=== PATIENT | male | born 1950 | race Caucasian/White ===

== ENCOUNTER 2019-02-16 17:43 | Inpatient (IN) | payer MEDICARE, OTHER ==
[~2019-02-16] VITALS: Ht 180.3 cm; Wt 86.5 kg
--- NOTE | 2019-02-16 18:30 | NUR ---
XR at bedside.
[2019-02-16 18:31] LABS: BASOPHILS # (AUTO) 0.1 X10'3 (0-0.2); EOSINOPHILS # (AUTO) 0.1 X10'3 (0-0.9); HEMATOCRIT 32.8 % (42.0-52.0); HEMOGLOBIN 10.5 g/dl (14.0-17.9); LYMPHOCYTES # (AUTO) 0.8 X10'3 (1.1-4.8); LYMPHOCYTES % (AUTO) 13.3 % (21-51); MEAN CORPUSCULAR HEMOGLOBIN 24.9 PG (27.0-31.0); MEAN CORPUSCULAR VOLUME 77.8 FL (78-98); MEAN PLATELET VOLUME 8.4 FL (7.4-10.4); MONOCYTES # (AUTO) 0.3 X10'3 (0-0.9); MONOCYTES % (AUTO) 5.2 % (2-12); NEUTROPHILS # (AUTO) 4.9 X10'3 (1.8-7.7); NEUTROPHILS % (AUTO) 78.5 % (42-75); PLATELET COUNT 205 X10'3 (140-440); RED BLOOD COUNT 4.22 X10'6 (4.70-6.10); RED CELL DISTRIBUTION WIDTH 19.3 % (11.5-14.5); WHITE BLOOD COUNT 6.3 X10'3 (4.5-11.0)
[2019-02-16 18:43] LABS: PARTIAL THROMBOPLASTIN TIME 24 SECONDS (22-32)
[2019-02-16 18:47] LABS: ALANINE AMINOTRANSFERASE 16 U/L (12-78); ALBUMIN 3.9 G/DL (3.4-5.0); ALBUMIN/GLOBULIN RATIO 0.9 (1.1-1.5); ALKALINE PHOSPHATASE 82 IU/L (46-116); ANION GAP 9 (8-16); ASPARTATE AMINO TRANSFERASE 21 U/L (10-37); BILIRUBIN,TOTAL 0.4 MG/DL (0.1-1.0); BLOOD UREA NITROGEN 7 MG/DL (7-18); BUN/CREATININE RATIO 7.4 (5.4-32.0); CALCIUM 10.3 MG/DL (8.5-10.1); CHLORIDE 100 MMOL/L (99-107); CREATININE 0.95 MG/DL (0.60-1.10); GLUCOSE 89 MG/DL (70-104); POTASSIUM 4.1 MMOL/L (3.5-5.1); SODIUM 137 MMOL/L (135-145); TOTAL CARBON DIOXIDE 27.7 MMOL/L (24-32); TOTAL PROTEIN 8.1 G/DL (6.4-8.2); eGFR 79 ML/MIN
[2019-02-16] MEDS ORDERED: nitroGLYCERIN 0.4mg/hour patch TD ONE (19:30)
[2019-02-16] MEDS ORDERED: iohexol 350MG/ML 100ml bottle IV ONE (19:35)
[2019-02-16] MEDS ORDERED: AMLO2.5T2 PO (19:36)
[2019-02-16] MEDS ORDERED: METO50TA7 PO (19:36)
--- NOTE | 2019-02-16 19:41 | NUR ---
Pt in CT.
[2019-02-16 22:41] LABS: ANISOCYTOSIS 2+; MICROCYTOSIS 1+; PLATELET ESTIMATE NORMAL; POLYCHROMASIA FEW
--- NOTE | 2019-02-16 23:29 | NUR ---
Dr. Madrid at bedside waiting for pt to return from restroom.
[2019-02-16] MEDS ORDERED: metoprolol tartrate 1mg/ml inj IV PRN (23:40)
[2019-02-16] MEDS ORDERED: aminophylline 250mg/10ml inj. IV PRN (23:40)
[2019-02-16] MEDS ORDERED: mag hydrox/Alum hydrox/simeth 30ml oral suspension PO PRN (23:40)
[2019-02-16] MEDS ORDERED: nitroGLYCERIN 0.4mg SUBLingual tab SL PRN (23:40)
[2019-02-16] MEDS ORDERED: magnesium hydroxide 30ml (MOM) UD suspension PO PRN (23:40)
[2019-02-16] MEDS ORDERED: acetaminophen 325mg tablet PO PRN (23:40)
[2019-02-16] MEDS ORDERED: ondansetron/PF 4mg/2ml inj IV PRN (23:40)
[2019-02-16] MEDS ORDERED: regadenoson 0.4mg/5ml syringe IV ONE (23:40)
[2019-02-17] VITALS (13 sets, daily range): BP systolic 117–153; BP diastolic 48–93
[2019-02-17 00:06] LABS: % IRON SATURATION 7 % (11-46); IRON 32 UG/DL (53-167); TOTAL IRON BINDING CAPACITY 441 UG/DL (259-388)
[2019-02-17] MEDS ORDERED: regadenoson 0.4mg/5ml syringe IV PRN (00:10)
--- NOTE | 2019-02-17 01:43 | NUR ---
0100: Patient in room [facility]. I have received report from JOSE Pineda RN and had the opportunity to ask questions and assume patient care.Patient arrived to unit in no apparent distress by wheelchair. Nurse transported. Addendum: 02/17/19 at 0145 by Yang Presley RN Pateint is not complainig of any chest pain at this time. Will continue to monitor
--- NOTE | 2019-02-17 02:18 | NUR ---
patient is admitted because of chest pain. Tatyana scan planned for later today. Patient does not complain of any chest pain at this time. Addendum: 02/17/19 at 0224 by Yang Presley RN Amended: Links added.
--- NOTE | 2019-02-17 06:34 | NUR ---
Problems reprioritized. Patient report given, questions answered & plan of care reviewed with EVA King.
--- NOTE | 2019-02-17 06:35 | NUR ---
Patient in room [facility]. I have received report from Yang and had the opportunity to ask questions and assume patient care.
--- NOTE | 2019-02-17 06:55 | NUR ---
Patient in room [facility]. I have received report from EVA Soria and had the opportunity to ask questions and assume patient care.
--- NOTE | 2019-02-17 07:50 | NUR ---
Pt was NPO since midnight of 02/17. Pt was not aware and there was no sign of NPO in his room. pt was not aware of his NPO status. He was scheduled to get a erin-scan. I notified Nuc-med about him taking a couple bites of eggs and macedonian toast and 200 ml of milk. I placed an NPO sign in the room and educated the patient about his status
[2019-02-17 07:54] LABS: BASOPHILS % (AUTO) 0.7 % (0-1); EOSINOPHILS # (AUTO) 0.1 X10'3 (0-0.9); EOSINOPHILS % (AUTO) 1.5 % (0-6); HEMATOCRIT 29.7 % (42.0-52.0); HEMOGLOBIN 9.5 g/dl (14.0-17.9); LYMPHOCYTES # (AUTO) 0.7 X10'3 (1.1-4.8); LYMPHOCYTES % (AUTO) 11.1 % (21-51); MEAN CORPUSCULAR HEMOGLOBIN 24.8 PG (27.0-31.0); MEAN CORPUSCULAR HGB CONC 31.9 g/dL (33.0-36.5); MEAN CORPUSCULAR VOLUME 77.6 FL (78-98); MEAN PLATELET VOLUME 8.7 FL (7.4-10.4); MONOCYTES # (AUTO) 0.4 X10'3 (0-0.9); MONOCYTES % (AUTO) 6.2 % (2-12); NEUTROPHILS # (AUTO) 5.3 X10'3 (1.8-7.7); NEUTROPHILS % (AUTO) 80.5 % (42-75); PLATELET COUNT 161 X10'3 (140-440); RED BLOOD COUNT 3.83 X10'6 (4.70-6.10); RED CELL DISTRIBUTION WIDTH 19.1 % (11.5-14.5); WHITE BLOOD COUNT 6.6 X10'3 (4.5-11.0)
[2019-02-17] MEDS: amLODIPine 5mg tablet PO SCH (08:00)
[2019-02-17] MEDS: metoprolol succinate 25mg (24-HOUR) SR. Tablet PO SCH (08:00)
[2019-02-17] MEDS: loperamide 2mg capsule PO PRN ×2 (08:05→18:52)
[2019-02-17 08:12] LABS: ALBUMIN 3.3 G/DL (3.4-5.0); ANION GAP 11 (8-16); BLOOD UREA NITROGEN 12 MG/DL (7-18); BUN/CREATININE RATIO 13.6 (5.4-32.0); CALCIUM 10.2 MG/DL (8.5-10.1); CHLORIDE 101 MMOL/L (99-107); CHOL/HDL RATIO 4.7 (0.00-4.99); CHOLESTEROL 165 MG/DL (0-200); CREATININE 0.88 MG/DL (0.60-1.10); GLUCOSE 90 MG/DL (70-104); HDL CHOLESTEROL 35 MG/DL (35-60); LDL CHOLESTEROL 120 MG/DL (50-100); POTASSIUM 4.3 MMOL/L (3.5-5.1); SODIUM 135 MMOL/L (135-145); TOTAL CARBON DIOXIDE 23.3 MMOL/L (24-32); TRIGLYCERIDES 139 MG/DL (20-135); eGFR 86 ML/MIN
[2019-02-17 08:31] LABS: LARGE PLATELETS FEW; PLATELET ESTIMATE NORMAL
[2019-02-17 08:32] LABS: ANISOCYTOSIS 2+; MICROCYTOSIS 1+
[2019-02-17] MEDS: pantoprazole 40MG/NS 100ML BAG 100 ML IV SCH ×2 (11:00→11:32)
[2019-02-17 11:47] LABS: HEMATOCRIT 29.4 % (42.0-52.0); HEMOGLOBIN 9.3 g/dl (14.0-17.9); MEAN CORPUSCULAR HEMOGLOBIN 24.7 PG (27.0-31.0); MEAN CORPUSCULAR HGB CONC 31.6 g/dL (33.0-36.5); MEAN CORPUSCULAR VOLUME 78.1 FL (78-98); MEAN PLATELET VOLUME 8.8 FL (7.4-10.4); PLATELET COUNT 164 X10'3 (140-440); RED BLOOD COUNT 3.77 X10'6 (4.70-6.10); RED CELL DISTRIBUTION WIDTH 18.9 % (11.5-14.5)
--- NOTE | 2019-02-17 12:35 | NUR ---
pt went down to GI lab. Informed Tele about pat going to GI lab. patient was aler and oriented. he was not in distress when he left.
[2019-02-17] MEDS ORDERED: MIDAZolam 5mg/5ml vial ONE (12:44)
[2019-02-17] MEDS ORDERED: fentaNYL/PF 50MCG/1 ML 2ML syringe ONE (12:44)
[2019-02-17] MEDS ORDERED: LIDOcaine Viscous 15ml cup ONE (12:44)
--- NOTE | 2019-02-17 14:00 | NUR ---
Malnutrition consult: Pt seen at bedside reports UBW 193 lbs with wt loss to 173 lbs that occurred over the last 1.5-2 years ago r/t decreased appetite with decreased activity secondary to back injury and difficulty eating d/t needing to get dentures fixed. This is non-significant wt loss of 10% in 1.5-2 years. Pt agrees to soft to chew food to optimize PO intake, d/w dietary. Pt states his usual meal pattern is just one meal a day however states that he drinks Ensure or Boost daily d/t to decreased PO intake of meals. No documentation of PO intake since admit. Pt with mild decrease in muscle strength, no edema, and no visible fat/muscle wasting. Pt currently does not meet criteria for malnutrition. Nutrition consult re: " cardiac hx, states he does not eat healthy". Pt provided with written and verbal heart healthy nutrition therapy education as well as ONS recommendations for when experiencing a low appetite with ONS coupons and RD contact information. Will remain available. Addendum: 02/17/19 at [address] Amended: Links added.
--- NOTE | 2019-02-17 15:11 | NUR ---
patient back to room 360b. alert and oriented with no complaints other than "starving." Visitor at bedside.
[2019-02-17 15:57] LABS: HEMATOCRIT 30.2 % (42.0-52.0); HEMOGLOBIN 9.5 g/dl (14.0-17.9); MEAN CORPUSCULAR HEMOGLOBIN 24.7 PG (27.0-31.0); MEAN CORPUSCULAR HGB CONC 31.4 g/dL (33.0-36.5); MEAN CORPUSCULAR VOLUME 78.4 FL (78-98); MEAN PLATELET VOLUME 8.6 FL (7.4-10.4); PLATELET COUNT 176 X10'3 (140-440); RED BLOOD COUNT 3.86 X10'6 (4.70-6.10); RED CELL DISTRIBUTION WIDTH 19.3 % (11.5-14.5); WHITE BLOOD COUNT 6.1 X10'3 (4.5-11.0)
--- NOTE | 2019-02-17 18:35 | NUR ---
Problems reprioritized. Patient report given, questions answered & plan of care reviewed with
--- NOTE | 2019-02-17 18:40 | NUR ---
Student documentation: I have reviewed and agree with all interventions, assessments performed and documented by SN KM. Student Medication Administration: For this medication-pass time frame, all medication were reviewed, dispensed, administered and documented per hospital policy by SN KM.
[2019-02-17] MEDS: acetaminophen 325mg tablet PO PRN (18:53)
[2019-02-17] MEDS: pantoprazole 40mg Tablet.DR PO SCH (19:25)
[2019-02-18] VITALS: BP 119/40
[2019-02-18 04:23] LABS: BASOPHILS # (AUTO) 0.1 X10'3 (0-0.2); BASOPHILS % (AUTO) 1.3 % (0-1); EOSINOPHILS # (AUTO) 0.2 X10'3 (0-0.9); EOSINOPHILS % (AUTO) 3.4 % (0-6); HEMOGLOBIN 8.8 g/dl (14.0-17.9); LYMPHOCYTES % (AUTO) 20.1 % (21-51); MEAN CORPUSCULAR HEMOGLOBIN 24.9 PG (27.0-31.0); MEAN CORPUSCULAR HGB CONC 31.6 g/dL (33.0-36.5); MEAN CORPUSCULAR VOLUME 78.9 FL (78-98); MONOCYTES # (AUTO) 0.3 X10'3 (0-0.9); MONOCYTES % (AUTO) 5.8 % (2-12); NEUTROPHILS # (AUTO) 3.4 X10'3 (1.8-7.7); NEUTROPHILS % (AUTO) 69.4 % (42-75); PLATELET COUNT 154 X10'3 (140-440); RED BLOOD COUNT 3.54 X10'6 (4.70-6.10); RED CELL DISTRIBUTION WIDTH 19.3 % (11.5-14.5); WHITE BLOOD COUNT 4.8 X10'3 (4.5-11.0)
[2019-02-18 04:33] LABS: ALBUMIN 3.1 G/DL (3.4-5.0); ANION GAP 9 (8-16); BLOOD UREA NITROGEN 15 MG/DL (7-18); BUN/CREATININE RATIO 16.5 (5.4-32.0); CALCIUM 9.3 MG/DL (8.5-10.1); CHLORIDE 105 MMOL/L (99-107); CREATININE 0.91 MG/DL (0.60-1.10); GLUCOSE 89 MG/DL (70-104); SODIUM 140 MMOL/L (135-145); TOTAL CARBON DIOXIDE 26.1 MMOL/L (24-32); eGFR 83 ML/MIN
[2019-02-18 07:58] VITALS: BP 102/62
[2019-02-18 08:06] LABS: PLATELET ESTIMATE NORMAL
[2019-02-18 08:07] LABS: ANISOCYTOSIS 2+; HYPOCHROMASIA 1+; MICROCYTOSIS 1+
[2019-02-18] MEDS: amLODIPine 5mg tablet PO SCH (08:09)
[2019-02-18] MEDS: metoprolol succinate 25mg (24-HOUR) SR. Tablet PO SCH (08:09)
[2019-02-18] MEDS: pantoprazole 40mg Tablet.DR PO SCH (08:09)
[2019-02-18] MEDS: acetaminophen 325mg tablet PO PRN (08:10)
--- NOTE | 2019-02-18 08:49 | NUR ---
Student Medication Administration: For this medication-pass time frame, all medication were reviewed, dispensed, administered and documented per hospital policy by Lexis Erwin [facility].
[2019-02-18] MEDS ORDERED: PANT40TA4 PO (09:03)
--- NOTE | 2019-02-18 10:30 | NUR ---
Patient A&O and in no apparent distress. Spouse at bedside. Discussed with patient discharge instructions and new prescriptions. patient and spouse verbalized understanding of teaching. Patient IV dc'd. He has all his personal belongings ready for dc.
--- NOTE | 2019-02-18 10:55 | NUR ---
Patient dc'd with all personal belongings via wheelchair accompanied by x1 spouse. Patient was a&o and in no distress with no complaints.
== END 2019-02-18 10:55 | disposition home or self-care (01) | DRG 392 ==
LOC: ER 17:43 → ED HOLD 23:51 → SUR 3N 02-17 01:31
PROVIDERS: ADMIT Hospitalist; ATTEND Internal Medicine
PROC: B32T1ZZ Computerized Tomography (CT Scan) of Left Pulmonary Artery using Low Osmolar Contrast (ICD-10-PCS; principal; 2019-02-16)
PROC: B3201ZZ Computerized Tomography (CT Scan) of Thoracic Aorta using Low Osmolar Contrast (ICD-10-PCS; 2019-02-16)
PROC: B32S1ZZ Computerized Tomography (CT Scan) of Right Pulmonary Artery using Low Osmolar Contrast (ICD-10-PCS; 2019-02-16)
PROC: 0DB68ZX Excision of Stomach, Via Natural or Artificial Opening Endoscopic, Diagnostic (ICD-10-PCS; 2019-02-17)
DX: K21.0 Gastro-esophageal reflux disease with esophagitis (principal); D62 Acute posthemorrhagic anemia; F17.200 Nicotine dependence, unspecified, uncomplicated; I10 Essential (primary) hypertension; I25.10 Atherosclerotic heart disease of native coronary artery without angina pectoris; J44.9 Chronic obstructive pulmonary disease, unspecified; K22.70 Barrett's esophagus without dysplasia; I71.2 Thoracic aortic aneurysm, without rupture; K29.70 Gastritis, unspecified, without bleeding; K44.9 Diaphragmatic hernia without obstruction or gangrene; Z79.899 Other long term (current) drug therapy; I25.2 Old myocardial infarction; Z95.5 Presence of coronary angioplasty implant and graft; Z56.0 Unemployment, unspecified
CPT/HCPCS: 36415; 43239; 71045; 71275; 74174; 80048; 80053; 80061; 83540; 83550; 84484; 85025; 85027; 85610; 85730; 87081; 88305; 88342; 93005; 99152; 99285; A4620; C9113; G0378; J0280; J2250; J2785; J3010; J7040; Q9967

== ENCOUNTER 2023-03-08 09:55 | Inpatient (IN) | payer MEDICARE, OTHER ==
[~2023-03-08] VITALS: Ht 180.3 cm; Wt 77.3 kg
[2023-03-08] VITALS (9 sets, daily range): BP systolic 98–108; BP diastolic 58–89; PULSE 54–92; RESP 18–29; TEMP 97.1–98.3; O2SAT 95–98
[~2023-03-08 09:55] MED LIST: ATOR40TA71 PO; LIDOcaine 2% (20 mg/ml) 5ml cardiac syringe ONE; LIDOcaine 2% jelly 6ml syringe ***for topical use only ONE; METO-395 PO; rocuronium 10mg/ml inj IV ONE; sod chloride 0.9% 10ml flush syringe IV ONE
--- NOTE | 2023-03-08 11:35 | NUR ---
Sharmaine joaquin in [facility] - 03/08/23 at 1138 by MARIA GUADALUPE PT NIL
--- NOTE | 2023-03-08 11:38 | NUR ---
PT IN [facility]
[2023-03-08] MEDS ORDERED: azithromycin/NS 500mg/250ml 250 ML IV ONE (14:40)
[2023-03-08] MEDS ORDERED: ipratropium 0.5 MG/2.5ML nebule IH ONE ×2 (14:40)
[2023-03-08] MEDS ORDERED: normal saline 1000ML IV soln IVB ONE (14:40)
[2023-03-08] MEDS ORDERED: CefTRIAXone 2gm/D5W 50ml BAG 50 ML IV ONE (14:40)
[2023-03-08] MEDS ORDERED: methylPREDNISolone sod succ 125mg/2ml vial IV ONE (14:40)
[2023-03-08] MEDS ORDERED: albuterol 2.5 MG/3 ML nebule CONTNEB PRN ×2 (14:40)
[2023-03-08 14:53] LABS: ABG BASE EXCESS -5.2 mmol/L (-2.0-2.0); ABG HCO3 17.5 mmol/L (22.0-26.0); ABG OXYGEN SATURATION 95.6 % (94-97); ABG PCO2 (T) 24.1 mmHg (35.0-48.0); ABG PO2 (T) 78.6 mmHg (75.0-100.0); ALLEN'S TEST Modified; FCOHb 1.2 % (0.0-3.9); FHHb 4.3 % (0.0-5.0); FLOW 3 L/min; FMetHb 0.4 % (0.0-1.5); FO2Hb 94.1 % (94-97); MODE NC; TOTAL HEMOGLOBIN 7.5 G/dl (14.0-17.9)
[2023-03-08 15:19] LABS: BASOPHILS % (AUTO) 0.3 % (0-1); EOSINOPHILS % (AUTO) 0 % (0-6); MEAN CORPUSCULAR HEMOGLOBIN 19.7 PG (27.0-31.0); MEAN CORPUSCULAR HGB CONC 27.8 g/dL (33.0-36.5); MONOCYTES # (AUTO) 0.6 X10'3 (0-0.9)
[2023-03-08 15:20] LABS: LYMPHOCYTES # (AUTO) 0.4 X10'3 (1.1-4.8); LYMPHOCYTES % (AUTO) 5.5 % (21-51); MEAN PLATELET VOLUME 9.7 FL (7.4-10.4); MONOCYTES % (AUTO) 8.6 % (2-12); NEUTROPHILS # (AUTO) 6.1 X10'3 (1.8-7.7); NEUTROPHILS % (AUTO) 85.6 % (42-75); PLATELET COUNT 94 X10'3 (140-440); RED BLOOD COUNT 3.38 X10'6 (4.70-6.10); RED CELL DISTRIBUTION WIDTH 22.3 % (11.5-14.5); WHITE BLOOD COUNT 7.1 X10'3 (4.5-11.0)
[2023-03-08 15:30] LABS: ALANINE AMINOTRANSFERASE 14 U/L (12-78); ALBUMIN 3.6 G/DL (3.4-5.0); ALBUMIN/GLOBULIN RATIO 1.1 (1.1-1.5); ALKALINE PHOSPHATASE 85 IU/L (46-116); ANION GAP 13 (8-16); ASPARTATE AMINO TRANSFERASE 21 U/L (10-37); BILIRUBIN,TOTAL 1.2 MG/DL (0.1-1.0); BLOOD UREA NITROGEN 12 MG/DL (7-18); BUN/CREATININE RATIO 9.8 (10.0-20.0); CALCIUM 10.5 MG/DL (8.5-10.1); CHLORIDE 95 MMOL/L (99-107); CREATININE 1.22 MG/DL (0.60-1.10); GLUCOSE 110 MG/DL (70-104); POTASSIUM 4.4 MMOL/L (3.5-5.1); SODIUM 129 MMOL/L (135-145); TOTAL CARBON DIOXIDE 20.6 MMOL/L (24-32); eCRCL 58 ML/MIN; eGFR 58 ML/MIN
[2023-03-08 15:39] LABS: ETHANOL < 10 MG/DL (<10); PRO BRAIN NATRIURETIC PEPTIDE 9494 PG/ML (0-125)
[2023-03-08 15:44] LABS: HEMOGLOBIN 6.7 g/dl (14.0-17.9)
[2023-03-08 15:49] LABS: PLATELET ESTIMATE DECREASED
[2023-03-08 15:50] LABS: ANISOCYTOSIS 3+; ELLIPTOCYTES 1+; HYPOCHROMASIA 2+; MICROCYTOSIS 1+; STOMATOCYTES 1+; TEAR DROP CELLS FEW
[2023-03-08] MEDS ORDERED: nitroGLYCERIN 1gm ointment UD TP ONE (15:50)
[2023-03-08] MEDS ORDERED: aspirin 325mg tablet PO ONE (15:50)
[2023-03-08 15:52] LABS: SCHISTOCYTES FEW
[2023-03-08] MEDS ORDERED: iohexol 350MG/ML 100ml bottle IV ONE (15:52)
[2023-03-08] MEDS ORDERED: pantoprazole 40 MG vial IV ONE (16:25)
[2023-03-08] MEDS ORDERED: normal saline 1000ml 1,000 ML IV ONE (16:25)
[2023-03-08] MEDS: NORepinephrine 8mg/ 250ml NS 250 ML IV PRN ×2 (17:03→23:54)
[2023-03-08] MEDS ORDERED: succinylcholine 20mg/ml inj IV ONE (17:11)
[2023-03-08] MEDS ORDERED: ondansetron/PF 4mg/2ml inj IV ONE (17:20)
[2023-03-08] MEDS ORDERED: morphine 2 MG/ML inj. syringe IV ONE (17:25)
[2023-03-08] MEDS: pantoprazole 40MG/NS 100ML BAG 100 ML IV SCH (21:18)
[2023-03-08] MEDS ORDERED: magnesium hydroxide 30ml (MOM) UD suspension PO PRN (21:35)
[2023-03-08] MEDS ORDERED: ondansetron/PF 4mg/2ml inj IV PRN (21:35)
[2023-03-08] MEDS ORDERED: albuterol 2.5 MG/3 ML nebule NEB PRN (21:35)
[2023-03-08] MEDS ORDERED: acetaminophen 325mg tablet PO PRN (21:35)
--- NOTE | 2023-03-08 21:51 | NUR ---
Message sent to RT. Pt in ER 4 Fadi Murphy. Came off bi PAP to talk to the chief embalmer. He remains on 6L NC with an O2 SAT OF 96. Pt is not in distress.
[2023-03-08 22:24] LABS: THYROID STIMULATING HORMONE 3.53 ulU/ml (0.34-4.50)
[2023-03-09] VITALS (19 sets, daily range): BP systolic 96–143; BP diastolic 40–99; PULSE 50–60; RESP 15–30; O2SAT 89–98
[2023-03-09] MEDS: pantoprazole 40MG/NS 100ML BAG 100 ML IV SCH (01:56)
[2023-03-09] MEDS: albuterol 2.5 MG/3 ML nebule NEB SCH ×4 (02:02→20:13)
[2023-03-09] MEDS: NORepinephrine 8mg/ 250ml NS 250 ML IV PRN ×3 (04:47→11:54)
[2023-03-09 05:35] LABS: EOSINOPHILS % (AUTO) 0 % (0-6); HEMOGLOBIN 7.6 g/dl (14.0-17.9); LYMPHOCYTES # (AUTO) 0.5 X10'3 (1.1-4.8)
[2023-03-09 05:38] LABS: BASOPHILS % (AUTO) 0 % (0-1); HEMATOCRIT 26.5 % (42.0-52.0); LYMPHOCYTES % (AUTO) 6.1 % (21-51); MEAN CORPUSCULAR HEMOGLOBIN 20.7 PG (27.0-31.0); MEAN CORPUSCULAR HGB CONC 28.7 g/dL (33.0-36.5); MEAN CORPUSCULAR VOLUME 72.3 FL (78-98); MEAN PLATELET VOLUME 9.1 FL (7.4-10.4); MONOCYTES # (AUTO) 0.5 X10'3 (0-0.9); MONOCYTES % (AUTO) 5.6 % (2-12); NEUTROPHILS # (AUTO) 7.5 X10'3 (1.8-7.7); NEUTROPHILS % (AUTO) 88.3 % (42-75); PLATELET COUNT 119 X10'3 (140-440); RED BLOOD COUNT 3.66 X10'6 (4.70-6.10); RED CELL DISTRIBUTION WIDTH 21.9 % (11.5-14.5); WHITE BLOOD COUNT 8.5 X10'3 (4.5-11.0)
[2023-03-09 05:44] LABS: ALBUMIN 3.3 G/DL (3.4-5.0); ANION GAP 12 (8-16); BLOOD UREA NITROGEN 18 MG/DL (7-18); BUN/CREATININE RATIO 13.7 (10.0-20.0); CALCIUM 9.6 MG/DL (8.5-10.1); CHLORIDE 99 MMOL/L (99-107); CREATININE 1.31 MG/DL (0.60-1.10); GLUCOSE 181 MG/DL (70-104); MAGNESIUM 1.6 MG/DL (1.5-2.4); POTASSIUM 3.8 MMOL/L (3.5-5.1); SODIUM 131 MMOL/L (135-145); TOTAL CARBON DIOXIDE 19.9 MMOL/L (24-32); eCRCL 54 ML/MIN; eGFR 54 ML/MIN
[2023-03-09 06:40] LABS: ANISOCYTOSIS 3+; HYPOCHROMASIA 1+; MICROCYTOSIS 1+; NUCLEATED RED BLOOD CELLS 2 /100WBC (0-0); PLATELET ESTIMATE DECREASED; POLYCHROMASIA 2+; TEAR DROP CELLS FEW; TOTAL CELLS COUNTED 100
[2023-03-09 06:41] LABS: ELLIPTOCYTES 1+; LARGE PLATELETS FEW; SCHISTOCYTES FEW
--- NOTE | 2023-03-09 07:52 | NUR ---
updated pt's sister leeroy, on the pt's status
[2023-03-09] MEDS ORDERED: enoxaparin 30mg/0.3ml syringe SUBCUT ONE (08:00)
[2023-03-09] MEDS ORDERED: ipratropium 0.5 MG/2.5ML nebule IH ONE (08:00)
[2023-03-09] MEDS: pantoprazole 40 MG vial IV SCH ×2 (08:16→20:37)
[2023-03-09] MEDS: predniSONE 20 mg tablet PO SCH (08:16)
[2023-03-09] MEDS: CefTRIAXone/D5W-Rocephin 1gm 50 ML IV SCH (08:18)
[2023-03-09 09:44] LABS: URINE AMPHETAMINE SCREEN NEGATIVE (Neg); URINE BARBITUATE SCREEN NEGATIVE (Neg); URINE BENZODIAZEPINES SCREEN NEGATIVE (Neg); URINE CANNABINOID SCREEN NEGATIVE (Neg); URINE COCAINE SCREEN NEGATIVE (Neg); URINE METHADONE SCREEN NEGATIVE (Neg); URINE OPIATE SCREEN POSITIVE (Neg); URINE PHENCYCLIDINE SCREEN NEGATIVE (Neg)
--- NOTE | 2023-03-09 10:40 | NUR ---
NERYROBIN YBARRA DAUGHTER [phone]
--- NOTE | 2023-03-09 11:06 | NUR ---
attempted to return a call to trice mehta but got no answer.
--- NOTE | 2023-03-09 12:38 | NUR ---
tried to give report but was advised that the primary receiving nurse is not ready and needs 15 minutes and will call for report.
[2023-03-09] MEDS ORDERED: ringers solution, lacted 1,000 ML IV ONE ×3 (13:35→16:45)
--- NOTE | 2023-03-09 13:40 | NUR ---
dr stubbs gave verbal order to infuse 2,000 mL of LR stat and titrate the levophed down, he expects a f/u call after these orders are carried out.
--- NOTE | 2023-03-09 15:00 | NUR ---
pt here- walked from [facility]- tolerated well, slight sob with exertion, renains on levo and lr. update to daughter coming from [place]
--- NOTE | 2023-03-09 16:00 | NUR ---
labs drawn, hemogram down, increased levo required. questionable vascular problems on left arm- switched bp to right- improved bp. 1 liter lr given when dr stubbs called.
[2023-03-09 16:33] LABS: HEMATOCRIT 24.7 % (42.0-52.0); MEAN CORPUSCULAR HEMOGLOBIN 20.8 PG (27.0-31.0); MEAN CORPUSCULAR HGB CONC 28.3 g/dL (33.0-36.5); MEAN CORPUSCULAR VOLUME 73.5 FL (78-98); PLATELET COUNT 120 X10'3 (140-440); RED BLOOD COUNT 3.36 X10'6 (4.70-6.10); RED CELL DISTRIBUTION WIDTH 21.7 % (11.5-14.5); WHITE BLOOD COUNT 15.4 X10'3 (4.5-11.0)
[2023-03-09] MEDS: ringers solution, lactated 500ml IV solution IV SCH (18:00)
--- NOTE | 2023-03-09 18:00 | NUR ---
levo off, dr stubbs called re pts orientation slightly off-last drink on sat- ium ordered.
[2023-03-09] MEDS ORDERED: chlordiazePOXIDE 25mg capsule PO ONE (18:25)
--- NOTE | 2023-03-09 18:41 | NUR ---
Patient in room ICU 2045. I have received report from Daria Galvan RN and had the opportunity to ask questions and assume patient care.
[2023-03-09] MEDS ORDERED: enoxaparin 40mg/0.4ml syringe SQ SCH (20:00)
--- NOTE | 2023-03-09 23:30 | NUR ---
MD Han rounding on patient via tele. MD updated on patient status, including patients stable BP off levo and patient desaturating when asleep. Order received to place patient on CPAP for sleep. Will follow MD orders, will continue to monitor patient.
--- NOTE | 2023-03-09 23:57 | NUR ---
RT at patient bedside setting up hospital CPAP. Patient stating he normally uses one at home, which was not states in patient history. Will update .
[2023-03-10] VITALS (38 sets, daily range): BP systolic 104–150; BP diastolic 40–108; PULSE 45–102; RESP 11–26; TEMP 98.4; O2SAT 91–100
[2023-03-10] MEDS: ringers solution, lactated 500ml IV solution IV SCH ×4 (00:01→20:28)
[2023-03-10 00:39] LABS: ALBUMIN 2.7 G/DL (3.4-5.0); ANION GAP 9 (8-16); BLOOD UREA NITROGEN 25 MG/DL (7-18); BUN/CREATININE RATIO 21.9 (10.0-20.0); CHLORIDE 99 MMOL/L (99-107); CREATININE 1.14 MG/DL (0.60-1.10); GLUCOSE 123 MG/DL (70-104); MAGNESIUM 1.5 MG/DL (1.5-2.4); POTASSIUM 4.1 MMOL/L (3.5-5.1); SODIUM 131 MMOL/L (135-145); TOTAL CARBON DIOXIDE 22.8 MMOL/L (24-32); eCRCL 62 ML/MIN; eGFR 63 ML/MIN
--- NOTE | 2023-03-10 01:54 | NUR ---
MD Han called and notified regarding patient's critical Hemoglobin 6.3 and Hematocrit 21.4. New order for 1 unit PRBC received and to be placed by MD. Will follow MD orders, will continue to monitor patient.
[2023-03-10] MEDS: albuterol 2.5 MG/3 ML nebule NEB SCH ×4 (02:14→20:45)
[2023-03-10 02:52] LABS: BASOPHILS % (AUTO) 0.1 % (0-1); EOSINOPHILS % (AUTO) 0 % (0-6); LYMPHOCYTES # (AUTO) 0.6 X10'3 (1.1-4.8); MONOCYTES # (AUTO) 0.4 X10'3 (0-0.9)
[2023-03-10 02:53] LABS: LYMPHOCYTES % (AUTO) 6.9 % (21-51); MEAN CORPUSCULAR HEMOGLOBIN 21.3 PG (27.0-31.0); MEAN CORPUSCULAR HGB CONC 29.2 g/dL (33.0-36.5); MEAN CORPUSCULAR VOLUME 73.1 FL (78-98); MEAN PLATELET VOLUME 9.7 FL (7.4-10.4); MONOCYTES % (AUTO) 4.5 % (2-12); NEUTROPHILS # (AUTO) 7.1 X10'3 (1.8-7.7); NEUTROPHILS % (AUTO) 88.5 % (42-75); PLATELET COUNT 92 X10'3 (140-440); RED BLOOD COUNT 2.99 X10'6 (4.70-6.10); RED CELL DISTRIBUTION WIDTH 21.8 % (11.5-14.5); WHITE BLOOD COUNT 8.1 X10'3 (4.5-11.0)
[2023-03-10 03:38] LABS: HEMATOCRIT 21.8 % (42.0-52.0); HEMOGLOBIN 6.4 g/dl (14.0-17.9)
[2023-03-10 03:42] LABS: LARGE PLATELETS FEW; PLATELET ESTIMATE DECREASED
[2023-03-10 03:43] LABS: ANISOCYTOSIS 3+; HYPOCHROMASIA 2+; MICROCYTOSIS 1+
[2023-03-10 03:44] LABS: ELLIPTOCYTES 1+
[2023-03-10] MEDS: chlordiazePOXIDE 25mg capsule PO SCH ×4 (05:50→14:00)
--- NOTE | 2023-03-10 06:26 | NUR ---
Problems reprioritized. Patient report given, questions answered & plan of care reviewed with Emily VELASQUEZ.
[2023-03-10] MEDS ORDERED: MVI, adult No.4 with vit. K 10 ML in dextrose 5% water 500ml 500 ML IV SCH ×2 (07:30)
[2023-03-10] MEDS ORDERED: folic acid 1mg tablet PO ONE (08:00)
--- NOTE | 2023-03-10 08:07 | NUR ---
Patient in room ICU 2045. I have received report from Juan Ramon VELASQUEZ and had the opportunity to ask questions and assume patient care.
[2023-03-10 08:09] LABS: HEMATOCRIT 25.9 % (42.0-52.0); HEMOGLOBIN 7.9 g/dl (14.0-17.9); MEAN CORPUSCULAR HEMOGLOBIN 22.9 PG (27.0-31.0); MEAN CORPUSCULAR HGB CONC 30.3 g/dL (33.0-36.5); MEAN CORPUSCULAR VOLUME 75.5 FL (78-98); PLATELET COUNT 88 X10'3 (140-440); RED BLOOD COUNT 3.43 X10'6 (4.70-6.10); RED CELL DISTRIBUTION WIDTH 23.7 % (11.5-14.5); WHITE BLOOD COUNT 8.7 X10'3 (4.5-11.0)
[2023-03-10] MEDS: pantoprazole 40 MG vial IV SCH ×2 (08:50→20:26)
[2023-03-10] MEDS: MULTIVIT-MIN/FERROUS GLUCONATE 9 MG/15 ML LIQUID PO SCH (08:50)
[2023-03-10] MEDS: thiamine 100mg tablet PO SCH (08:50)
[2023-03-10] MEDS: CefTRIAXone/D5W-Rocephin 1gm 50 ML IV SCH (08:58)
[2023-03-10] MEDS: azithromycin/NS 500mg/250ml 250 ML IV SCH (10:09)
[2023-03-10] MEDS: nicotine 21mg patch - 24 hr TD SCH (10:59)
--- NOTE | 2023-03-10 11:10 | NUR ---
Initial: Pt DX septic shock, acute exacerbation COPD, and acute on chronic hypoxemic respiratory failure per EMR. Pt is currently on a full liquid diet with documented intake of 25-100% for first two meals though not meeting estimated needs due to restrictive diet. LBM on 03/09 per EMR. Will continue to monitor closely and make recommendations as appropriate. Recommendations: 1.continue full liquid diet and advance diet as medically indicated 2.monitor PO intake and need for ONS 3.continue MVM with iron, folic acid, thiamine due to anemia and ETOH hx 4.bowel care per physician 5.weekly scaled wts Addendum: 03/10/23 at [address] Amended: Links added.
[2023-03-10] MEDS: predniSONE 20 mg tablet PO SCH (11:43)
--- NOTE | 2023-03-10 18:15 | NUR ---
Patient in room ICU 2045. I have received report from mEily VELASQUEZ and had the opportunity to ask questions and assume patient care.
[2023-03-10] MEDS ORDERED: LORazepam 1 MG tablet PO PRN (19:45)
[2023-03-10] MEDS ORDERED: haloperidol lactate 5mg/ml inj IM PRN (19:45)
[2023-03-10] MEDS ORDERED: haloperidol 5mg tablet PO PRN (19:45)
[2023-03-10] MEDS ORDERED: LORazepam 2 mg/ml vial IV PRN (19:45)
--- NOTE | 2023-03-10 19:59 | NUR ---
MD Morrison called to notify regarding patient's current order for scheduled lovenox even though last plt level was 88. Also called to inform MD of patient's ETOH history and to ask for ETOH protocol med order for patient. New orders received. Will continue to monitor patient, will follow MD orders.
[2023-03-11] VITALS (17 sets, daily range): BP systolic 122–151; BP diastolic 46–72; PULSE 72–94; RESP 12–25; TEMP 98–98.7; O2SAT 90–99
[2023-03-11 01:04] LABS: BASOPHILS # (AUTO) 0.1 X10'3 (0-0.2); EOSINOPHILS % (AUTO) 0.3 % (0-6); HEMATOCRIT 25.4 % (42.0-52.0); HEMOGLOBIN 7.7 g/dl (14.0-17.9); LYMPHOCYTES # (AUTO) 0.2 X10'3 (1.1-4.8); LYMPHOCYTES % (AUTO) 2.7 % (21-51); MEAN CORPUSCULAR HGB CONC 30.4 g/dL (33.0-36.5); MEAN CORPUSCULAR VOLUME 75.8 FL (78-98); MONOCYTES # (AUTO) 0.2 X10'3 (0-0.9); MONOCYTES % (AUTO) 3.4 % (2-12); NEUTROPHILS # (AUTO) 6.7 X10'3 (1.8-7.7); NEUTROPHILS % (AUTO) 92.6 % (42-75); PLATELET COUNT 94 X10'3 (140-440); RED BLOOD COUNT 3.36 X10'6 (4.70-6.10); RED CELL DISTRIBUTION WIDTH 23.6 % (11.5-14.5); WHITE BLOOD COUNT 7.2 X10'3 (4.5-11.0)
[2023-03-11 01:12] LABS: ALBUMIN 2.7 G/DL (3.4-5.0); ANION GAP 7 (8-16); BLOOD UREA NITROGEN 16 MG/DL (7-18); CHLORIDE 101 MMOL/L (99-107); GLUCOSE 139 MG/DL (70-104); MAGNESIUM 1.5 MG/DL (1.5-2.4); POTASSIUM 4.3 MMOL/L (3.5-5.1); SODIUM 134 MMOL/L (135-145); TOTAL CARBON DIOXIDE 26.3 MMOL/L (24-32); eCRCL 71 ML/MIN; eGFR 73 ML/MIN
[2023-03-11 02:02] LABS: PLATELET ESTIMATE DECREASED
[2023-03-11 02:03] LABS: ANISOCYTOSIS 3+; LARGE PLATELETS FEW; MICROCYTOSIS 1+
[2023-03-11 02:04] LABS: ELLIPTOCYTES 1+; TARGET CELLS FEW
[2023-03-11 02:05] LABS: HYPOCHROMASIA 1+
[2023-03-11] MEDS: albuterol 2.5 MG/3 ML nebule NEB SCH ×4 (03:14→20:34)
[2023-03-11] MEDS: ringers solution, lactated 500ml IV solution IV SCH (03:35)
--- NOTE | 2023-03-11 06:17 | NUR ---
Problems reprioritized. Patient report given, questions answered & plan of care reviewed with Dlemy Archibald RN.
[2023-03-11] MEDS: predniSONE 20 mg tablet PO SCH (08:54)
[2023-03-11] MEDS: thiamine 100mg tablet PO SCH (08:54)
[2023-03-11] MEDS: MULTIVIT-MIN/FERROUS GLUCONATE 9 MG/15 ML LIQUID PO SCH (08:54)
[2023-03-11] MEDS: nicotine 21mg patch - 24 hr TD SCH (08:54)
[2023-03-11] MEDS: CefTRIAXone/D5W-Rocephin 1gm 50 ML IV SCH (09:19)
[2023-03-11] MEDS: azithromycin/NS 500mg/250ml 250 ML IV SCH (10:27)
--- NOTE | 2023-03-11 11:44 | NUR ---
PAGER ID: [phone] MESSAGE: [id number], Kareem Aponte. Can we advance patients diet? Do you want fluids to continue? Can we change the multivitamin to PO pill? And Protonix PO? Emily GREWAL
[2023-03-11] MEDS: pantoprazole 40mg Tablet.DR PO SCH (12:05)
--- NOTE | 2023-03-11 12:29 | NUR ---
PAGER ID: [phone] MESSAGE: [id number], Kareem Aponte. The rectoscope has arrived. He is coughing a lot can we get him some tesslon pearls? Emily [facility] [id number]
[2023-03-11] MEDS ORDERED: codeine/proMETHazine 5ml UD syrup PO PRN (13:10)
[2023-03-11] MEDS ORDERED: hydrocortisone acetate 25mg rectal suppository RC PRN (13:10)
[2023-03-11] MEDS ORDERED: guaiFENesin 200mg/20mg codeine phos 10ml UD oral syrup PO PRN (14:10)
--- NOTE | 2023-03-11 15:32 | NUR ---
F/u 03/11: Pt prior on full liquid diet with average intake of 66%x 4 meals though not meeting estimated needs due to restrictive diet. Pt advanced to a heart healthy diet today; pending PO intake. Will monitor PO intake on solid food and need for ONS. LBM on 03/10 per EMR. Will continue to monitor and make recommendations as appropriate. Recommendations: 1.continue heart healthy diet 2.monitor PO intake and need for ONS 3.continue MVM with iron, folic acid, thiamine due to anemia and ETOH hx 4.bowel care per physician 5.weekly scaled wts Addendum: 03/11/23 at [address] Amended: Links added.
--- NOTE | 2023-03-11 18:31 | NUR ---
Problems reprioritized. Patient report given, questions answered & plan of care reviewed with Veronica RN, patient stable at transfer of care..
[2023-03-11] MEDS: atorvastatin 20mg tablet PO SCH (20:29)
[2023-03-11] MEDS: carVEDilol 3.125mg tablet PO SCH (20:29)
[2023-03-11] MEDS: acetaminophen 325mg tablet PO PRN (20:50)
[2023-03-12] VITALS (15 sets, daily range): BP systolic 100–148; BP diastolic 44–85; PULSE 61–94; RESP 15–20; TEMP 97.3–98.2; O2SAT 80–98
[2023-03-12] MEDS: albuterol 2.5 MG/3 ML nebule NEB SCH ×4 (03:00→20:38)
--- NOTE | 2023-03-12 06:10 | NUR ---
Patient in room PCU 3028. I have received report from NOC EVA Saavedra and had the opportunity to ask questions and assume patient care.
--- NOTE | 2023-03-12 06:11 | NUR ---
Problems reprioritized. Patient report given, questions answered & plan of care reviewed with Emily.
[2023-03-12] MEDS: spironolactone 25 MG tablet PO SCH (08:30)
[2023-03-12] MEDS: acetaminophen 325mg tablet PO PRN ×2 (08:31→19:32)
[2023-03-12] MEDS: lisinopril 2.5mg tablet PO SCH (08:33)
[2023-03-12] MEDS: predniSONE 20 mg tablet PO SCH (08:33)
[2023-03-12] MEDS: thiamine 100mg tablet PO SCH (08:33)
[2023-03-12] MEDS: furosemide 20 MG/2 ML vial IV SCH (08:33)
[2023-03-12] MEDS: carVEDilol 3.125mg tablet PO SCH ×2 (08:33→19:29)
[2023-03-12] MEDS: multivitamins, therapeutics tablet PO SCH (08:34)
[2023-03-12] MEDS: pantoprazole 40mg Tablet.DR PO SCH (08:34)
[2023-03-12] MEDS: EMPAGLIFLOZIN 10 MG TABLET PO SCH (08:35)
[2023-03-12] MEDS: CefTRIAXone/D5W-Rocephin 1gm 50 ML IV SCH (08:38)
[2023-03-12] MEDS: nicotine 21mg patch - 24 hr TD SCH (08:39)
[2023-03-12 08:41] LABS: LYMPHOCYTES # (AUTO) 0.9 X10'3 (1.1-4.8); MONOCYTES # (AUTO) 0.4 X10'3 (0-0.9)
[2023-03-12 08:43] LABS: ALBUMIN 3.2 G/DL (3.4-5.0); ANION GAP 6 (8-16); BASOPHILS % (AUTO) 0.1 % (0-1); BLOOD UREA NITROGEN 13 MG/DL (7-18); BUN/CREATININE RATIO 13.7 (10.0-20.0); CALCIUM 9.6 MG/DL (8.5-10.1); CHLORIDE 102 MMOL/L (99-107); CREATININE 0.95 MG/DL (0.60-1.10); EOSINOPHILS % (AUTO) 0.5 % (0-6); GLUCOSE 81 MG/DL (70-104); LYMPHOCYTES % (AUTO) 11.7 % (21-51); MAGNESIUM 1.7 MG/DL (1.5-2.4); MONOCYTES % (AUTO) 5.3 % (2-12); NEUTROPHILS # (AUTO) 6.4 X10'3 (1.8-7.7); NEUTROPHILS % (AUTO) 82.4 % (42-75); PLATELET COUNT 113 X10'3 (140-440); POTASSIUM 3.8 MMOL/L (3.5-5.1); SODIUM 137 MMOL/L (135-145); TOTAL CARBON DIOXIDE 29.5 MMOL/L (24-32); WHITE BLOOD COUNT 7.8 X10'3 (4.5-11.0); eCRCL 75 ML/MIN; eGFR 78 ML/MIN
[2023-03-12 09:35] LABS: HEMATOCRIT 31.5 % (42.0-52.0); HEMOGLOBIN 9.8 g/dl (14.0-17.9); RED BLOOD COUNT 4.14 X10'6 (4.70-6.10)
[2023-03-12 09:36] LABS: MEAN CORPUSCULAR HEMOGLOBIN 23.7 PG (27.0-31.0); MEAN CORPUSCULAR HGB CONC 31.2 g/dL (33.0-36.5)
[2023-03-12] MEDS: azithromycin/NS 500mg/250ml 250 ML IV SCH (11:00)
--- NOTE | 2023-03-12 18:35 | NUR ---
Patient report given to EVA Saavedra, questions answered & plan of care reviewed.
[2023-03-12] MEDS: atorvastatin 20mg tablet PO SCH (19:29)
[2023-03-13] VITALS (16 sets, daily range): BP systolic 100–153; BP diastolic 40–105; PULSE 53–85; RESP 10–19; TEMP 96.6–98; O2SAT 92–98
[2023-03-13] MEDS: albuterol 2.5 MG/3 ML nebule NEB SCH ×4 (02:30→20:35)
--- NOTE | 2023-03-13 06:25 | NUR ---
Problems reprioritized. Patient report given, questions answered & plan of care reviewed with
[2023-03-13 08:03] LABS: BASOPHILS % (AUTO) 0.1 % (0-1); EOSINOPHILS # (AUTO) 0.1 X10'3 (0-0.9); HEMOGLOBIN 8.1 g/dl (14.0-17.9); LYMPHOCYTES # (AUTO) 0.6 X10'3 (1.1-4.8); MONOCYTES # (AUTO) 0.4 X10'3 (0-0.9)
[2023-03-13 08:04] LABS: EOSINOPHILS % (AUTO) 1.5 % (0-6); HEMATOCRIT 27.2 % (42.0-52.0); LYMPHOCYTES % (AUTO) 11.3 % (21-51); MEAN CORPUSCULAR HEMOGLOBIN 23.3 PG (27.0-31.0); MEAN CORPUSCULAR HGB CONC 29.7 g/dL (33.0-36.5); MEAN CORPUSCULAR VOLUME 78.3 FL (78-98); MONOCYTES % (AUTO) 8.2 % (2-12); NEUTROPHILS # (AUTO) 4.3 X10'3 (1.8-7.7); NEUTROPHILS % (AUTO) 78.9 % (42-75); PLATELET COUNT 91 X10'3 (140-440); RED BLOOD COUNT 3.47 X10'6 (4.70-6.10); RED CELL DISTRIBUTION WIDTH 24.6 % (11.5-14.5); WHITE BLOOD COUNT 5.5 X10'3 (4.5-11.0)
[2023-03-13 08:21] LABS: ALBUMIN 2.6 G/DL (3.4-5.0); ANION GAP 3 (8-16); BLOOD UREA NITROGEN 19 MG/DL (7-18); BUN/CREATININE RATIO 20.9 (10.0-20.0); CALCIUM 9.1 MG/DL (8.5-10.1); CHLORIDE 101 MMOL/L (99-107); CREATININE 0.91 MG/DL (0.60-1.10); GLUCOSE 82 MG/DL (70-104); MAGNESIUM 1.7 MG/DL (1.5-2.4); POTASSIUM 3.8 MMOL/L (3.5-5.1); SODIUM 133 MMOL/L (135-145); TOTAL CARBON DIOXIDE 29.2 MMOL/L (24-32); eCRCL 78 ML/MIN; eGFR 82 ML/MIN
[2023-03-13] MEDS: azithromycin/NS 500mg/250ml 250 ML IV SCH (08:33)
[2023-03-13] MEDS: furosemide 20 MG/2 ML vial IV SCH (08:33)
[2023-03-13] MEDS: pantoprazole 40mg Tablet.DR PO SCH (08:34)
[2023-03-13] MEDS: multivitamins, therapeutics tablet PO SCH (08:34)
[2023-03-13] MEDS: EMPAGLIFLOZIN 10 MG TABLET PO SCH (08:34)
[2023-03-13] MEDS: nicotine 21mg patch - 24 hr TD SCH (08:34)
[2023-03-13] MEDS: carVEDilol 3.125mg tablet PO SCH ×2 (08:34→18:58)
[2023-03-13] MEDS: thiamine 100mg tablet PO SCH (08:35)
[2023-03-13] MEDS: atorvastatin 20mg tablet PO SCH (08:35)
[2023-03-13] MEDS: lisinopril 2.5mg tablet PO SCH (08:36)
[2023-03-13] MEDS: spironolactone 25 MG tablet PO SCH (08:36)
[2023-03-13] MEDS: hydrocortisone acetate 25mg rectal suppository RC SCH ×2 (13:30→18:58)
--- NOTE | 2023-03-13 15:10 | NUR ---
O2 Sat at rest on room air: 88% If below 89%: Recovery O2 Sat at rest on 2 LPM: 93%:via NASAL CANULA (mask/nasal cannula, etc..) No further documentation is necessary. If O2 Sat did not drop below 89% on room air,ambulate patient on room air. O2 Sat while ambulating on room air:___% Recovery O2 Sat while ambulating on ___LPM:___% No further documentation is necessary. If patient does not drop below 89% while ambulating, he/she does not qualify for home O2.
--- NOTE | 2023-03-13 15:25 | NUR ---
Reassessment: Pt continues on heart healthy diet, documented with average 56% PO intake of meals meeting 61% estimated energy needs and 49% estimated protein needs. Pt seen at bedside, endorses low appetite and difficulty chewing secondary to not having lower dentures d/t them breaking. Pt agrees to soft to chew foods and Ensure to optimize nutrient intake. Recommend Ensure Enlive TID, pending physician approval in EMR. Pt reports 50 lb wt loss in 8 months secondary to difficulty chewing however this is not consistent with scaled wt hx in EMR. Pt with no visible fat or muscle wasting appreciated and no documented decrease in muscle strength or significant edema. RD encouraged PO intake with emphasis on protein and provided pt with ONS coupons. Pt verbalized understanding. RD contact information provided and pt encouraged to reach out if needed. LBM 03/13 per EMR. Will continue to follow and monitor need for further nutrition intervention. Recommendations: 1. Advance to regular diet if PO intake does not improve; soft to chew food d/t difficulty chewing per pt request 2. Chocolate/[place] Ensure Enlive TID, pending physician approval in EMR 3. Continue Thiamine and MVI d/t EtOH hx; consider adding Folic acid, Iron, and Vitamin C 4. Bowel care per physician 5. Weekly scaled wts Addendum: 03/13/23 at [address] Amended: Links added.
--- NOTE | 2023-03-13 15:41 | NUR ---
PAGER ID: [phone] MESSAGE: EVA IGLESIAS, [facility], [id number]. RE: [id number]. CAN PT. HAVE IMODIUM FOR DIARRHEA
--- NOTE | 2023-03-13 18:35 | NUR ---
Problems reprioritized. Patient report given TO MICHELLE VELASQUEZ, questions answered & plan of care reviewed with .
[2023-03-14] VITALS (14 sets, daily range): BP systolic 97–127; BP diastolic 46–62; PULSE 53–90; RESP 12–20; TEMP 97–98.1; O2SAT 92–98
[2023-03-14] MEDS: albuterol 2.5 MG/3 ML nebule NEB SCH ×2 (03:13→08:15)
[2023-03-14 07:08] LABS: BASOPHILS % (AUTO) 0 % (0-1); EOSINOPHILS # (AUTO) 0.2 X10'3 (0-0.9); EOSINOPHILS % (AUTO) 3.1 % (0-6); HEMOGLOBIN 9.1 g/dl (14.0-17.9); LYMPHOCYTES # (AUTO) 0.8 X10'3 (1.1-4.8); LYMPHOCYTES % (AUTO) 13.3 % (21-51); MEAN PLATELET VOLUME 9.1 FL (7.4-10.4); MONOCYTES # (AUTO) 0.5 X10'3 (0-0.9); MONOCYTES % (AUTO) 7.5 % (2-12); NEUTROPHILS # (AUTO) 4.6 X10'3 (1.8-7.7); NEUTROPHILS % (AUTO) 76.1 % (42-75); PLATELET COUNT 99 X10'3 (140-440)
[2023-03-14 07:12] LABS: ALBUMIN 2.8 G/DL (3.4-5.0); ANION GAP 5 (8-16); BLOOD UREA NITROGEN 17 MG/DL (7-18); BUN/CREATININE RATIO 17.9 (10.0-20.0); CALCIUM 9.3 MG/DL (8.5-10.1); CHLORIDE 101 MMOL/L (99-107); CREATININE 0.95 MG/DL (0.60-1.10); GLUCOSE 79 MG/DL (70-104); MAGNESIUM 1.7 MG/DL (1.5-2.4); POTASSIUM 3.5 MMOL/L (3.5-5.1); SODIUM 136 MMOL/L (135-145); eCRCL 75 ML/MIN; eGFR 78 ML/MIN
[2023-03-14 08:00] LABS: HEMATOCRIT 30.3 % (42.0-52.0); MEAN CORPUSCULAR HEMOGLOBIN 23.9 PG (27.0-31.0); MEAN CORPUSCULAR HGB CONC 30.1 g/dL (33.0-36.5); MEAN CORPUSCULAR VOLUME 79.6 FL (78-98); RED BLOOD COUNT 3.81 X10'6 (4.70-6.10); RED CELL DISTRIBUTION WIDTH 25.2 % (11.5-14.5)
[2023-03-14] MEDS ORDERED: azithromycin 250mg tablet PO SCH (08:00)
[2023-03-14 08:12] LABS: PLATELET ESTIMATE DECREASED
[2023-03-14 08:13] LABS: ANISOCYTOSIS 3+; HYPOCHROMASIA 2+; MICROCYTOSIS 1+; POLYCHROMASIA 2+
[2023-03-14 08:14] LABS: ELLIPTOCYTES 1+; TEAR DROP CELLS 1+
[2023-03-14] MEDS: nicotine 21mg patch - 24 hr TD SCH (08:35)
[2023-03-14] MEDS: furosemide 20 MG/2 ML vial IV SCH (08:35)
[2023-03-14] MEDS: EMPAGLIFLOZIN 10 MG TABLET PO SCH (08:36)
[2023-03-14] MEDS: multivitamins, therapeutics tablet PO SCH (08:36)
[2023-03-14] MEDS: lisinopril 2.5mg tablet PO SCH (08:36)
[2023-03-14] MEDS: spironolactone 25 MG tablet PO SCH (08:36)
[2023-03-14] MEDS: atorvastatin 20mg tablet PO SCH (08:36)
[2023-03-14] MEDS: pantoprazole 40mg Tablet.DR PO SCH ×3 (08:36→21:13)
[2023-03-14] MEDS: FLUoxetine 20mg capsule PO SCH (08:37)
[2023-03-14] MEDS: thiamine 100mg tablet PO SCH (08:37)
[2023-03-14] MEDS: carVEDilol 3.125mg tablet PO SCH ×2 (08:37→21:13)
[2023-03-14] MEDS: hydrocortisone acetate 25mg rectal suppository RC SCH ×2 (08:45→21:14)
[2023-03-14 10:47] LABS: INR 1.1 INR
[2023-03-14 10:49] LABS: % IRON SATURATION 9 % (11-46); IRON 31 UG/DL (53-167); TOTAL IRON BINDING CAPACITY 335 UG/DL (259-388)
--- NOTE | 2023-03-14 18:20 | NUR ---
Patient in room PCU 3027Q. I have received report from RUBENS VELASQUEZ and had the opportunity to ask questions and assume patient care.
--- NOTE | 2023-03-14 18:31 | NUR ---
Problems reprioritized. Patient report given, questions answered & plan of care reviewed with EVA Moses.
[2023-03-14] MEDS: lactose-reduced food (Ensure Enlive) - 237ml bottle PO SCH (20:00)
--- NOTE | 2023-03-14 20:00 | NUR ---
NURSES NOTES PATIENT REFUSED SCD BECAUSE HE FEELS THAT THEY WILL DELAY HIM GOING TO THE BEDSIDE COMMODE.
[2023-03-15 02:00] VITALS: BP 92/31; PULSE 69; RESP 17; TEMP 97; O2SAT 94
[2023-03-15 03:30] VITALS: BP 104/40
[2023-03-15 06:00] VITALS: BP 113/46; PULSE 60; RESP 20; TEMP 97.6; O2SAT 90
--- NOTE | 2023-03-15 06:18 | NUR ---
Problems reprioritized. Patient report given, questions answered & plan of care reviewed with AUTUMN VELASQUEZ and JOAHNNE GARCIAN.
--- NOTE | 2023-03-15 06:27 | NUR ---
Patient in room PCU 3028. I have received report from jake CAMERON. Will follow care of Pt with Cristy CAMERON and had the opportunity to ask questions and assume patient care. Addendum: 03/15/23 at 0628 by Nereyda Burgess RN Amended: Links added.
[2023-03-15 07:48] LABS: BASOPHILS % (AUTO) 0.8 % (0-1); EOSINOPHILS # (AUTO) 0.3 X10'3 (0-0.9); EOSINOPHILS % (AUTO) 4.4 % (0-6); HEMATOCRIT 31.7 % (42.0-52.0); HEMOGLOBIN 9.4 g/dl (14.0-17.9); LYMPHOCYTES # (AUTO) 0.5 X10'3 (1.1-4.8); LYMPHOCYTES % (AUTO) 9.3 % (21-51); MEAN CORPUSCULAR HEMOGLOBIN 23.5 PG (27.0-31.0); MEAN CORPUSCULAR HGB CONC 29.8 g/dL (33.0-36.5); MEAN CORPUSCULAR VOLUME 78.9 FL (78-98); MEAN PLATELET VOLUME 9.1 FL (7.4-10.4); MONOCYTES # (AUTO) 0.7 X10'3 (0-0.9); MONOCYTES % (AUTO) 12.1 % (2-12); NEUTROPHILS # (AUTO) 4.4 X10'3 (1.8-7.7); NEUTROPHILS % (AUTO) 73.4 % (42-75); PLATELET COUNT 88 X10'3 (140-440); RED BLOOD COUNT 4.02 X10'6 (4.70-6.10); RED CELL DISTRIBUTION WIDTH 28.2 % (11.5-14.5); WHITE BLOOD COUNT 5.9 X10'3 (4.5-11.0)
[2023-03-15] MEDS: hydrocortisone acetate 25mg rectal suppository RC SCH (08:00)
[2023-03-15 08:03] LABS: ALBUMIN 2.9 G/DL (3.4-5.0); ANION GAP 3 (8-16); BLOOD UREA NITROGEN 14 MG/DL (7-18); BUN/CREATININE RATIO 16.7 (10.0-20.0); CALCIUM 9.4 MG/DL (8.5-10.1); CHLORIDE 102 MMOL/L (99-107); CREATININE 0.84 MG/DL (0.60-1.10); GLUCOSE 85 MG/DL (70-104); MAGNESIUM 1.8 MG/DL (1.5-2.4); POTASSIUM 3.7 MMOL/L (3.5-5.1); SODIUM 136 MMOL/L (135-145); TOTAL CARBON DIOXIDE 30.6 MMOL/L (24-32); eCRCL 85 ML/MIN; eGFR 90 ML/MIN
[2023-03-15] MEDS: lisinopril 2.5mg tablet PO SCH (08:31)
[2023-03-15] MEDS: pantoprazole 40mg Tablet.DR PO SCH (08:31)
[2023-03-15] MEDS: thiamine 100mg tablet PO SCH (08:31)
[2023-03-15] MEDS: spironolactone 25 MG tablet PO SCH (08:31)
[2023-03-15] MEDS: atorvastatin 20mg tablet PO SCH (08:31)
[2023-03-15] MEDS: carVEDilol 3.125mg tablet PO SCH (08:31)
[2023-03-15] MEDS: FLUoxetine 20mg capsule PO SCH (08:32)
[2023-03-15] MEDS: multivitamins, therapeutics tablet PO SCH (08:32)
[2023-03-15] MEDS: nicotine 21mg patch - 24 hr TD SCH (08:32)
[2023-03-15] MEDS: EMPAGLIFLOZIN 10 MG TABLET PO SCH (08:32)
[2023-03-15] MEDS: lactose-reduced food (Ensure Enlive) - 237ml bottle PO SCH (08:33)
[2023-03-15] MEDS: furosemide 20 MG/2 ML vial IV SCH (08:37)
[2023-03-15 10:03] VITALS: RESP 20; O2SAT 90
[2023-03-15] MEDS ORDERED: loperamide 2mg capsule PO PRN (10:10)
[2023-03-15 11:00] VITALS: BP 107/56; PULSE 58; RESP 16; TEMP 97.6; O2SAT 96
[2023-03-15] MEDS ORDERED: COR3.125T PO (14:07)
[2023-03-15] MEDS ORDERED: thiamine tablet PO (14:07)
[2023-03-15] MEDS ORDERED: SPIR25TA PO (14:07)
[2023-03-15] MEDS ORDERED: LOPE2CAP PO (14:07)
[2023-03-15] MEDS ORDERED: LISI2.5T14 PO (14:07)
[2023-03-15] MEDS ORDERED: NICO-687 TD (14:07)
[2023-03-15] MEDS ORDERED: MULT-25 PO (14:07)
[2023-03-15 15:00] VITALS: BP 110/65; PULSE 15; RESP 16; TEMP 97.8; O2SAT 98
--- NOTE | 2023-03-15 17:03 | NUR ---
Patient discharged home . report given to sister. Patient and patients family educated on how to use oxygen. All medications sent to [facility] [place] and will be delivered at patients house. Patient states he understands all discharge paper work and new medications. All personal belongings left with patient. IV removed and paper work signed.
[2023-03-15] MEDS ORDERED: HYDR25SU32 RC (18:07)
[2023-03-15] MEDS ORDERED: PANT40TA54 PO (18:07)
[2023-03-15] MEDS ORDERED: FERR324T4 PO (18:17)
== END 2023-03-15 17:15 | disposition home health service (06) | DRG 871 ==
LOC: ER 09:56 → ED HOLD 21:42 → EDBEDREQ 03-09 12:34 → ICU 2S 03-09 15:12 → PCU 3S 03-11 07:38
PROVIDERS: ADMIT Internal Medicine Critical Care Medicine; ATTEND Internal Medicine Critical Care Medicine
PROC: 30233N1 Transfusion of Nonautologous Red Blood Cells into Peripheral Vein, Percutaneous Approach (ICD-10-PCS; principal; 2023-03-08)
PROC: 02HV33Z Insertion of Infusion Device into Superior Vena Cava, Percutaneous Approach (ICD-10-PCS; 2023-03-08)
PROC: B32T1ZZ Computerized Tomography (CT Scan) of Left Pulmonary Artery using Low Osmolar Contrast (ICD-10-PCS; 2023-03-08)
PROC: B3201ZZ Computerized Tomography (CT Scan) of Thoracic Aorta using Low Osmolar Contrast (ICD-10-PCS; 2023-03-08)
PROC: B32S1ZZ Computerized Tomography (CT Scan) of Right Pulmonary Artery using Low Osmolar Contrast (ICD-10-PCS; 2023-03-08)
PROC: 5A09357 Assistance with Respiratory Ventilation, Less than 24 Consecutive Hours, Continuous Positive Airway Pressure (ICD-10-PCS; 2023-03-10)
PROC: 5A09357 Assistance with Respiratory Ventilation, Less than 24 Consecutive Hours, Continuous Positive Airway Pressure (ICD-10-PCS; 2023-03-11)
DX: A41.9 Sepsis, unspecified organism (principal); I21.4 Non-ST elevation (NSTEMI) myocardial infarction; J18.9 Pneumonia, unspecified organism; J96.21 Acute and chronic respiratory failure with hypoxia; R65.21 Severe sepsis with septic shock; R57.0 Cardiogenic shock; N17.0 Acute kidney failure with tubular necrosis; I50.21 Acute systolic (congestive) heart failure; J44.1 Chronic obstructive pulmonary disease with (acute) exacerbation; K92.2 Gastrointestinal hemorrhage, unspecified; E87.1 Hypo-osmolality and hyponatremia; J44.0 Chronic obstructive pulmonary disease with (acute) lower respiratory infection; I25.10 Atherosclerotic heart disease of native coronary artery without angina pectoris; E78.5 Hyperlipidemia, unspecified; Z20.822 Contact with and (suspected) exposure to COVID-19; K64.8 Other hemorrhoids; D69.6 Thrombocytopenia, unspecified; D50.0 Iron deficiency anemia secondary to blood loss (chronic); F10.10 Alcohol abuse, uncomplicated; I11.0 Hypertensive heart disease with heart failure; I25.2 Old myocardial infarction; Z82.0 Family history of epilepsy and other diseases of the nervous system; Z95.5 Presence of coronary angioplasty implant and graft; Z87.891 Personal history of nicotine dependence
CPT/HCPCS: 36415; 36430; 36600; 71045; 71275; 80048; 80053; 80305; 80320; 82803; 82948; 83540; 83550; 83605; 83735; 83880; 84145; 84443; 84484; 85007; 85008; 85018; 85025; 85027; 85379; 85610; 86885; 86900; 86901; 86920; 87040; 87081; 87811; 93306; 94640; 94660; 94760; 96365; 96375; 99291; A4615; A6213; A6258; A6402; C1751; C1758; C9113; G0378; J0330; J0456; J0696; J1650; J1940; J2270; J2405; J2930; J3490; J7030; J7040; J7120; J7512; J7999; P9016; Q9967